=== PATIENT | female | born 1940 | race Caucasian/White ===

== ENCOUNTER → 2016-06-08 | Outpatient (CLI) | payer MEDICARE ==
[2016-04-11 15:00] VITALS: BP 130/62
[~2016-06-08] MED LIST: ALLO100T PO; AMIO200T2 PO; AMLO1TAB12 PO; ASPI-482 PO; BUTA1CAP27 PO; CHOL20004 PO; CHOL500016 PO; CYAN10005 PO; DILT120C11 PO; DILT180C4 PO; DOCU100T11 PO; FERR-26 PO; FLEC100T PO; FURO20TA3 PO; GABA-585 PO; HYDR-2666 PO; HYDR-2672 PO; IOHEXOL 180 MG/ML 10 ML VIAL. ONE; LABE100T3 PO; LEVO112T4 PO; LIDO700A4 TP; LOSA100T6 PO; LOSA50TA6 PO; LOVA20TA2 PO; MAGN400T3 PO; OMEP40CA5 PO; POTA90TA2 PO; ROPI0.5T2 PO; SERT25TA4 PO; UBID50CA PO; VENL37.57 PO; VENTOLIN HFA18 GM INH; VITA1TAB54 PO; methylPREDNISolone ACETATE 40 MG/ML VIAL. ONE; methylPREDNISolone ACETATE 80 MG/ML VIAL. ONE
--- NOTE | 2016-06-09 19:55 | PAIN ---
DATE OF SERVICE: 06/08/2016 DIAGNOSES: Lumbar radiculopathy with lumbar degenerative disk disease, lumbar spinal stenosis and post-lumbar laminectomy syndrome. HISTORY OF PRESENT ILLNESS: The patient is a 75-year-old female who returns for followup status post lumbar epidural steroid injection x 1. The patient reports 100% improvement for the first 4-5 days after the injection. Pain is gradually returning, but not nearly to baseline, still about 75% improved overall in the low back and right hip and lower extremity. The patient reports still difficulty getting out of bed. When she is out of bed, she is doing fairly well during the day. Her pain can be anywhere from 0-8 on a scale of 10, it was 8 this morning. Currently, at 3 on a scale of 10 today while she is here. The patient reports getting in and out of bed especially in the morning, it is much worse with the pain in the right hip and leg, radiating to the posterior gluteus, posterior lateral thigh, lateral anterior thigh, but again much improved from previous visit. The patient reports she is doing physical therapy at home twice a week, which she seems to think is helping as well and strengthening her back, although she has some soreness in the legs, it is getting better with physical therapy. The patient reports no new motor or sensory deficits, no new bowel or bladder incontinence or other complaints. The patient describes the pain as aching mostly and dull, but occasionally sharp when she is getting out of bed in the morning. PHYSICAL EXAMINATION: VITAL SIGNS: The patient's blood pressure 134/60, pulse 83, respirations 18, temperature 98.6 degrees Fahrenheit, height is 5 feet, weight is 192 pounds. GENERAL: The patient is awake, alert, oriented, appropriate, very pleasant demeanor. HEENT: Head shows normocephalic, atraumatic. Extraocular movements are intact and symmetrical. Oral cavity, mucous membranes are moist and pink. Dentition is intact. NECK: Shows anterior throat supple without palpable lymphadenopathy noted. Swallow reflex is symmetrical. CHEST: Shows normal on inspection. Breath sounds are clear to auscultation bilaterally. HEART: Shows S1 and S2 clear. ABDOMEN: Obese, soft, nontender, nondistended. No palpable organomegaly is noted. No rebound or guarding demonstrated. BACK: Shows spine grossly midline. Slight exaggeration of thoracic kyphosis and flattening of lumbar lordotic curvature. Lumbar well-healed surgical scars again noted. The patient's lumbar paraspinous musculature shows symmetrical on inspection. With palpation shows some moderate tenderness with palpation bilaterally diffusely in the lower lumbar distribution only, but is symmetrical without evidence of atrophy, hypertrophy. The patient shows good rotation and motion of the lumbar spine, both laterally as well as extension and flexion without difficulty. No tenderness over the sacrum or sacroiliac regions with palpation. EXTREMITIES: Lower extremities show deep tendon reflexes at 1+ in the patellar and tendo calcaneus tendons and are equal. Motor exam is approximately 4 on a scale of 5 with dorsiflexion and extension, but symmetrical right and left. Peripheral pulses are 1+ posterior tibial and dorsalis pedis pulses. No peripheral edema is noted. PLAN: Options were discussed with the patient. Patient's old chart was reviewed as her current medication regimen and updated. Current review of systems updated today as well. We will proceed with a second lumbar epidural steroid injection today with fluoroscopic guidance. Risks were again discussed including, but not limited to bleeding, infection, possibility of epidural hematoma, subsequent neurological compromise, dural puncture, headaches, spinal cord and/or nerve damage, side effects of steroid medication and poor results regarding pain control. The patient understands and wishes to proceed. The patient will return to clinic in approximately 2 weeks for followup. She was counseled as to return appointment, activity level and side effects to be aware of. DIAGNOSES: Lumbar radiculopathy with lumbar degenerative disk disease, lumbar spinal stenosis and post-lumbar laminectomy syndrome. PROCEDURES: Lumbar epidural steroid injection in translaminar approach at the L4-L5 level using C-arm fluoroscopic guidance under sterile prep and drape and local anesthetic. MEDICATIONS INJECTED: Depo-Medrol 120 mg plus 10 mL of preservative-free normal saline and 2 mL Isovue for contrast. CONDITION AT DISCHARGE: Stable. The patient tolerated the procedure well, had no complications. AZRA BLANK MD DR: DIPIKA/jasmin JOB#: [id number] / [id number]
== END | disposition home or self-care (01) ==
LOC: PNCL 07:38
PROVIDERS: ATTEND Anesthesiology
DX: M51.16 Intervertebral disc disorders with radiculopathy, lumbar region (principal); M96.1 Postlaminectomy syndrome, not elsewhere classified; I48.91 Unspecified atrial fibrillation; I10 Essential (primary) hypertension; K21.9 Gastro-esophageal reflux disease without esophagitis; Z90.710 Acquired absence of both cervix and uterus; M19.90 Unspecified osteoarthritis, unspecified site; E03.9 Hypothyroidism, unspecified
CPT/HCPCS: 62323; J1030; J1040

== ENCOUNTER → 2016-06-22 | Outpatient (CLI) | payer MEDICARE ==
[2016-04-11 15:00] VITALS: BP 130/62
--- NOTE | 2016-06-23 04:22 | PAIN ---
DATE OF SERVICE: 06/22/2016 DIAGNOSES: Lumbar radiculopathy with lumbar degenerative disk disease, spinal stenosis and post-lumbar laminectomy syndrome. HISTORY OF PRESENT ILLNESS: The patient is a 75-year-old female who returns for followup status post lumbar epidural steroid injection x 2, last seen 06/08/2016. The patient did very well with near 80% improvement after her last injection until she fell about 4 days ago on some stairs, ____ her back and she has had pain returning in the same site in the right side of the low back and right lower extremity as it was previously, almost at the baseline. The patient reports it is a 4/5 on a scale of 10, it is aching and dull, constant sharp pain in the low back on the right side radiating into the right leg, mostly in the lateral and anterior aspect of the thigh and the medial lower leg below the knee. The patient reports she is still doing physical therapy at home, which she feels is helpful. She still has some weakness on the right leg compared to the left, but is getting better with therapy until she fell a few days back. The patient reports otherwise doing well. No new motor or sensory deficits, no new bowel or bladder incontinence or other complaints. She is quite disappointed with the falling as it ____ her pain, but otherwise doing fairly well. PHYSICAL EXAMINATION: VITAL SIGNS: The patient's blood pressure 156/67, pulse 81, respirations 18, temperature is 98.5 degrees Fahrenheit, height is 5 feet, weight is 196 pounds. GENERAL: The patient is awake, alert, oriented, appropriate, very pleasant demeanor. HEENT: Shows normocephalic, atraumatic. Extraocular movements are intact and symmetrical. Oral cavity, mucous membranes are moist and pink. Dentition is intact. NECK: Shows anterior throat supple without palpable lymphadenopathy noted. Swallow reflex is symmetrical. CHEST: Shows normal on inspection. Breath sounds are clear to auscultation bilaterally. HEART: Shows S1 and S2 clear. ABDOMEN: Obese, soft, nontender, nondistended. No palpable organomegaly is noted. BACK: Shows spine grossly midline, slight increase in exaggeration of thoracic kyphosis and some flattening of lumbar lordotic curvature. Lumbar paraspinous muscle shows some moderate tenderness with palpation in the low and mid distribution, but diffusely and is symmetrical without evidence of atrophy, hypertrophy. The patient shows good rotational motion of lumbar spine, both laterally as well as extension and flexion without difficulty. EXTREMITIES: Lower extremities showed deep tendon reflexes 1+ in the patellar and tendo calcaneus tendons. Motor exam is approximately 4 on a scale of 5, but equal with dorsiflexion and extension in quadriceps and hamstring flexion is 4/5 on the right and 5/5 on the left. Options were discussed with the patient and the patient's old chart was reviewed as her current medication regimen updated. Current review of systems updated today as well. We will proceed with the third lumbar epidural steroid injection today with fluoroscopic guidance. Risks were again discussed including, but not limited to bleeding, infection, possibility of epidural hematoma, subsequent neurologic compromise, dural puncture, headaches, spinal cord and/or nerve damage, side effects of steroid medication and poor results regarding pain control. The patient understands and wishes to proceed. The patient will return to clinic in approximately 2 weeks for followup, was counseled on return appointment, activity level and side effects to be aware of. DIAGNOSES: Lumbar radiculopathy with lumbar degenerative disk disease, spinal stenosis and post-lumbar laminectomy syndrome. PROCEDURE: Lumbar epidural steroid injection in translaminar approach at the L4-L5 level using C-arm fluoroscopic guidance. Under sterile prep and drape with local anesthesia medication injected 120 mg Depo-Medrol plus 10 mL of preservative-free normal saline and 2 mL Isovue for contrast. CONDITION AT DISCHARGE: Stable. The patient tolerated procedure well, had no complications. AZRA BLANK MD DR: DIPIKA/jasmin JOB#: [id number] / [id number]
== END | disposition home or self-care (01) ==
LOC: PNCL 07:55
PROVIDERS: ATTEND Anesthesiology
DX: M51.16 Intervertebral disc disorders with radiculopathy, lumbar region (principal); M48.06 Spinal stenosis, lumbar region; M96.1 Postlaminectomy syndrome, not elsewhere classified; I10 Essential (primary) hypertension; K21.9 Gastro-esophageal reflux disease without esophagitis; M19.90 Unspecified osteoarthritis, unspecified site; E03.9 Hypothyroidism, unspecified; Z96.651 Presence of right artificial knee joint
CPT/HCPCS: 62323; J1030; J1040